=== PATIENT | female | born 1955 | race Two or more races ===

== ENCOUNTER 2023-04-23 09:54 | Emergency (ER) | payer MEDICARE ==
[~2023-04-23] VITALS: Ht 172.7 cm; Wt 65.3 kg
[2023-04-23] MEDS ORDERED: LOSARTAN POTASSIUM 25 MG TABLET ONE (10:50)
[2023-04-23] MEDS ORDERED: hydrALAZINE HCL IV 20 MG VIAL ONE (10:50)
[2023-04-23] MEDS: hydrALAZINE HCL IV 20 MG VIAL IV ONE (10:58)
[2023-04-23] MEDS: LOSARTAN POTASSIUM 25 MG TABLET PO ONE (10:59)
[2023-04-23 11:00] LABS: BASOPHILS % (AUTO) 0.4 % (0.0-2.0); EOSINOPHILS % (AUTO) 0.4 % (0.0-6.0); HEMATOCRIT 42 % (33-45); HEMOGLOBIN 13.8 g/dL (11.5-14.8); LYMPHOCYTES % (AUTO) 25.1 % (20.0-44.0); MEAN CORPUSCULAR HEMOGLOBIN 28 PG (26.0-33.0); MEAN CORPUSCULAR HGB CONC 33 g/dl (31.0-36.0); MEAN CORPUSCULAR VOLUME 85 fL (82-100); MONOCYTES # (AUTO) 0.3 K/uL (0.1-1.30); MONOCYTES % (AUTO) 7.5 % (2.0-12.0); NEUTROPHILS # (AUTO) 2.6 K/uL (1.8-8.9); NEUTROPHILS % (AUTO) 66.6 % (43.0-81.0); PLATELET COUNT (AUTO) 117 K/uL (150-450); RED BLOOD CELL COUNT(AUTO) 4.95 MIL/uL (4.0-5.2); RED CELL DISTRIBUTION WIDTH 13.5 % (11.5-15.0)
[2023-04-23 11:29] LABS: ALANINE AMINOTRANSFERASE 17 U/L (12-78); ALBUMIN 4.4 g/dL (3.4-5.0); ALKALINE PHOSPHATASE 94 U/L (46-116); ASPARTATE AMINOTRANSFERASE 15 U/L (15-37); BILIRUBIN,DIRECT 0.2 mg/dL (0.0-0.2); CALCIUM, SERUM 10.4 mg/dL (8.5-10.1); CARBON DIOXIDE 26 mmol/L (21-32); CHLORIDE 104 mmol/L (98-107); CREATININE 0.8 mg/dL (0.6-1.3); GLUCOSE 103 mg/dL (74-106); POTASSIUM 3.5 mmol/L (3.5-5.1); SODIUM SERUM 142 mmol/L (136-145); UREA NITROGEN, BLOOD 15 mg/dL (7-18)
[2023-04-23] MEDS ORDERED: LOSA50TA39 PO (12:05)
[2023-04-23 12:15] VITALS: BP 134/74; TEMP 98; O2SAT 99
== END 2023-04-23 12:16 | disposition home or self-care (01) ==
LOC: ER 10:19
DX: R51.9 Headache, unspecified (principal); I10 Essential (primary) hypertension; Z85.3 Personal history of malignant neoplasm of breast
CPT/HCPCS: 99285; 96374; 70450; 71045; 93005; 85025; 80048; 80076; 36415; 84484; J0360